=== PATIENT | male | born 1940 | race Two or more races ===

== ENCOUNTER 2024-10-08 14:18 | Outpatient (AMB) | payer OTHER, SELFPAY ==
--- NOTE | 2024-10-08 14:31 | PD.ORTHCLVIS ---
Vital signs 10/08/24 14:32 Height 1.75 m Height Method Stated Weight 84.425 kg Weight Measurement Method Standing Scale BMI 27.6 BP 189/81 H Blood Pressure Source Automatic Cuff Blood Pressure Location Right Upper Arm Position Sitting Respiration 18 Pulse 67 Pulse Source Monitor Temp 97.8 F Temp Source Temporal Artery Scan Pulse Oximetry (%) 97 Oxygen Delivery Method Room Air Med/Allergies Allergies & Medications Allergies prochlorperazine (From Compazine) Allergy (Verified 10/08/24 14:33) Medication Reconciliation amlodipine 5 mg tablet 5 mg PO QDAY 10/08/24 [History Confirmed 10/08/24] ascorbic acid (vitamin C) 1,000 mg capsule 1 g PO Q6H 10/08/24 [History Confirmed 10/08/24] losartan 100 mg tablet 100 mg PO QDAY 10/08/24 [History Confirmed 10/08/24] montelukast 10 mg tablet 10 mg PO QDAY 10/08/24 [History Confirmed 10/08/24] Exam Exam Patient is in no acute distress and is cooperative with the examination today. Patient has a normal mood and affect. Breathing is nonlabored. In no respiratory distress. Bilateral extremities were evaluated and demonstrates sensation intact to light touch. Palpable pedal pulses are present. No significant edema is present. His gait is antalgic and he is hunched forward considerably. Left hip demonstrates a posterior incisions is clean dry intact. Range of motion is painless. He can internally rotate to 20 0 to 30 degrees with no pain. He is negative Stinchfield. Left knee is nontender to palpation. X-rays from outside imaging were reviewed by me today. The last imaging was done in August 26 1023. I looked at the serial x-rays. 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 The hip implant does not appear to be loose as I see no radiolucent lines. Patient has an MRI that was reviewed by me. This is dated 12/21/2023. This demonstrates severe spinal canal stenosis at L5-S1. Assessment and Plan Problem List (1) Pain with hip hemiarthroplasty: Status: Acute Plan: Patient is an 83-year-old male with pain after a left hip hemiarthroplasty. He is walking hunched over with symptoms of lumbar stenosis. He has a positive shopping cart sign. His x-rays demonstrate a fully coated hip hemiarthroplasty. He has no pain with logroll and I thus think a conversion to a total hip replacement would not help him. He has no start up pain. His main issues is that he has pain down the leg and it feels weak. He has a benign hip examination. We thus are sending him a referral to another spine provider. (2) Arthritis of left hip: Status: Acute Advanced Care Planning Discussion Advance care planning discussed with:: patient Office Procedures GNS Level of Care Nursing/Assessment Patient Status: Established Patient Nursing Assessment/Reassesment: Medication Reconciliation and Update PMH in EMR Coordination of Care: Complex Care and Chronic Disease 1-5, Consent,records obtained, informed consent, Education Simp Pt/Fam, Results/Orders obtained and Staff clarify orders Established Patient Charge Established Patient Point Assignment: 75 Established Patient Point Charge: EP Level 2 (40-75) MA Intake Visit Data Collection New Patient or Established: Established Patient (seen at [facility] within 3 years) Reason for Visit:: LT HIP CONCERNS Seen by Clinical Staff ONLY (RN/MA): No Early Childhood Teacher Assistant Required: No PCP or OBGYN visit in last 3 months: Yes Hx Now: No Do You Feel Safe at Home: Yes Authorities Contacted: N/A Questionairres Past Medical History Past Medical History Have you ever been diagnosed with any of the following: Respiratory Problems Cough: No Wheezing: No Chest Deformities: No Smoking: No Smoking Cessation Counseling: No Smoking Exposure: No Tobacco Use: No Clubbing: No Exposure to Respiratory Irritants: No Subjective Visit Visit for: follow up visit and hip (LEFT HIP) Immunization / Flu Flu Vaccine in the Last 12 Months: No Flu Vaccine Exclusion Criteria: Refused by Patient History of Present Illness Chief complaint: spinal stenosis Patient is a 84 yo male with a left hip hemiarthroplasty 1.5 year ago. He had persistent pain and we were fairly sure with spinal stenosis. He had 2 injections and they helped tremendously. We thus discussed with him that this is most likely the back of his hip and that he has a positive shopping cart sign and severe spinal stenosis. Personal History Red flag PMH: none Pain Pain level (0-10): 0 Ambulatory data Walking distance (minutes): 5 Treatments Number of previous injections: 0 Number of Physical Therapy sessions: 18 Improvement with PT: Yes Improvement with NSAIDS: n/a Review of Systems Review of Systems: All systems negative unless otherwise noted in HPI.
[2024-10-08 14:32] VITALS: BP 189/81; PULSE 67; RESP 18; TEMP 36.6; O2SAT 97; BMI 27.6
== END 2024-10-08 14:53 | disposition home or self-care (01) ==
LOC: HODSRG 14:18
PROVIDERS: PCP Family Medicine; Referring Provider Family Medicine; Supervising Provider Orthopaedic Surgery Adult Reconstructive Orthopaedic Surgery; Visit Provider Orthopaedic Surgery Adult Reconstructive Orthopaedic Surgery
DX: T84.84XD Pain due to internal orthopedic prosthetic devices, implants and grafts, subsequent encounter (principal); Y84.9 Medical procedure, unspecified as the cause of abnormal reaction of the patient, or of later complication, without mention of misadventure at the time of the procedure; M48.061 Spinal stenosis, lumbar region without neurogenic claudication; M16.12 Unilateral primary osteoarthritis, left hip
CPT/HCPCS: 99212; G0463